=== PATIENT | female | born 1950 | race Caucasian/White ===

== ENCOUNTER 2018-07-27 07:25 | Observation (INO) | payer OTHER, MEDICARE, SELFPAY ==
[2018-07-09 14:51] VITALS: BP 148/88; PULSE 88; RESP 16; TEMP 36.4; O2SAT 97; BMI 32.6
--- NOTE | 2018-07-09 15:00 | SDCEKG_ITS ---
Test Reason : Blood Pressure : / mmHG Vent. Rate : 074 BPM Atrial Rate : 074 BPM P-R Int : 166 ms QRS Dur : 096 ms QT Int : 388 ms P-R-T Axes : 055 004 024 degrees QTc Int : 430 ms Normal sinus rhythm Incomplete right bundle branch block Inferior infarct , age undetermined Abnormal ECG Confirmed by NELLA MANLEY, WALLY ([id number]), story editor JANNETH CAMPA ([id number]) on 07/13/2018 3:47:23 PM Referred By: Vineet Castillo Confirmed By:WALLY CARMEN MD
[2018-07-09 16:57] LABS: Absolute Lymphocyte Count 1.86 X10^3/ul (0.83-4.51); Absolute Neutrophil Count 3.8 X10^3/uL (2.0-7.7); Basophil# 0.02 X10^3/uL; Basophil% 0.3 % (0-1); Eosinophil# 0.08 X10^3/uL; Eosinophils% 1.3 % (0-5); Hematocrit 42.2 % (37-47); Hemoglobin 14.2 g/dl (12.0-15.0); Lymphocyte # 1.86 X10^3/ul (4.0); Lymphocyte % 30.4 % (19-41); Mean Corp Hgb Conc 33.6 g/gl (32-36); Mean Corpuscular Hgb 29.5 pg (27.0-32.0); Mean Corpuscular Volume 87.6 fL (81-99); Mean Platelet Vol. 8.9 fl (6.2-12.0); Monocyte# 0.37 X10^3/uL; Neutrophil # 3.78 X10^3/uL (2.7-7.7); Neutrophil % 61.8 % (47-70); Platelet Count 255 K/mm3 (150-450); RBC Distribution Width CV 12.6 % (11.6-14.6); RBC Distribution Width SD 40.5 fl (35.1-43.9); Red Blood Count 4.82 M/mm3 (4.2-5.4); White Blood Count 6.1 K/mm3 (4.4-11.0)
[2018-07-09 17:00] LABS: POSITIVE COUNT NO; POSITIVE DIFFERENTIAL NO; POSITIVE MORPHOLOGY NO
[2018-07-09 17:20] LABS: Anion Gap 6 (5-15); BUN 21 mg/dL (7-18); Calcium,Total 9.1 mg/dL (8.5-10.1); Chloride 105 mmol/L (98-107); Creatinine, Serum 0.91 mg/dL (0.55-1.02); EST Glomerular Filtration Rate 65 mL/min (>60); Est Glom Filt Rate - Afr Amer 78 mL/min (>60); Estimated Creatinine Clearance 58.86 ml/min; Glucose 95 mg/dL (74-106); Sodium Level 141 mmol/L (136-145)
[2018-07-27] VITALS (9 sets, daily range): BP systolic 113–143; BP diastolic 59–95; PULSE 65–91; RESP 14–18; TEMP 36.6–36.8; O2SAT 96–100; BMI 32.6; BMI 32.3
[2018-07-27] MEDS: Celecoxib 200 MG Capsule 400 MG PO (05:52)
[2018-07-27] MEDS: Acetaminophen 500 MG Tablet 1000 MG PO ×3 (05:52→21:26)
[2018-07-27] MEDS: oxyCODONE HCl Cr 10 MG Tablet PO (05:53)
[2018-07-27] MEDS: Lactated Ringers 1,000 ML 999 ML IV (06:25)
--- NOTE | 2018-07-27 07:15 | KNEE_PTH ---
PATIENT: CONI ROMAN LOC: MS3 U#:[id number] AGE/SX: 67/F ROOM: MS309 RE07/27/[address]: Dr. Vineet Castillo DO : 1950 BED: 1 DIS: 07/28/2018 SPEC #: [id number] RECD: 07/27/18 09:40 STATUS: LOKI REVira #: [id number] AGATHA: 07/27/18 07:[address]: Vineet Castillo DEPT: SURGICAL PATHOLOGY RECD BY: Dean Valderrama ENTERED: 07/27/18 11:32 SP TYPE: TOTAL KNEE OTHR DR: Dr. Dalton Cook DO Tissues: Knee, NOS Procedures: Decalcification bone/plaque Surgery Specimen Level IV HEADER OPERATION: Total knee replacement PRE-OP DIAGNOSIS: Primary osteoarthritis, left knee TISSUE SUBMITTED: Left knee bone and soft tissue MICROSCOPIC DIAGNOSIS Left knee bone and soft tissue, total knee replacement/resection: Pieces of bone with degenerative osteoarthritic changes. Fibroadipose tissue, fibroconnective tissue and reactive synovial tissue. ARELY:idania 07/30/18 MICROSCOPIC DESCRIPTION Slides are reviewed. GROSS DESCRIPTION Received is one container designated bone and soft tissue left knee. The specimen consists of multiple fragments of prajapati-yellow bone measuring in aggregate 10.5 x 10 x 3 cm. Also in the specimen container are multiple fragments of yellow-white soft tissue measuring in aggregate 9 x 10 x 3 cm. A number of bony fragments contain articular surfaces consistent with tibial plateau and femoral condyle and displaying prominent osteophyte formation, eburnation, and bone erosion. Clinical Safety Manager sections are submitted in two cassettes as follows: 1 - soft tissue, 2 - bone after decalcification. / ARELY:idania 07/27/18 TC:5 [facility]: [id number], [id number]
[2018-07-27] MEDS: Scopolamine 1mg/72hr Patch 1 PATCH TD (07:30)
--- NOTE | 2018-07-27 08:32 | PCM.OPRPT ---
Report of Operation Date of Procedure: 07/27/18 Pre-Operative Diagnosis: OA left knee Post-Operative Diagnosis: same Surgery/Procedure Performed:: Left TKR project scheduler: Kalyan Haas Type of Anesthesia:: Spinal Anesthesiologist: Tyron Leigh Specimen's removed: bone Estimated Blood Loss (mL): 25 cc Description of Procedure: Primary Surgeon/Physician: Vineet Castillo project scheduler: Kalyan Haas PA-C project scheduler: Pre-Operative Diagnosis: OA Left knee Post-Operative Diagnosis: same Surgery/Procedure Performed: Left TKR Estimated Blood Loss: 25cc Specimen's Removed: bone Type of Anesthesia: spinal ASA Class: 2 Implants: [[place] Triathlon size 6 PS femur, size 6 tibia, 9 mm polyethylene spacer, 32 mm patella (all components cemented) ] Indications: Patient has severe end-stage osteoarthritis diagnosed via x-rays in the knee. They have failed all forms of conservative measures including activity modification, injections, anti-inflammatories, use of assistive device. The patient has pain that affects on a daily basis and prevents him from doing things that they enjoyed. They have elected to undergo the above procedure. The risks of the procedure were discussed at length and their questions were answered. Procedure Description: The patient was greeted in the preoperative area. The [left ] knee was then marked with a surgical marker. Patient was then taken to or Suite 2. They were administered a dose of antibiotics as well as tranexamic acid. Once adequate anesthesia was obtained and airway was secured to placed in supine position on the operating room table. A well-padded tourniquet was placed on the affected extremity. Leg was then prepped and draped in the usual sterile fashion from the knee down. Ioban was used on the skin. Surgical timeout was then performed and confirmed with all present. Six-inch Esmarch was used to examine the limb and tourniquet was then inflated to 250 mmHg. A longitudinal incision was then planned and carried out in the anterior aspect of the knee. The dissection was then carried the length of the incision the extensor mechanism was identified. Standard medial parapatellar arthrotomy was then performed revealing severe eburnation of bone and periarticular osteophytes. There is complete loss of cartilage especially in the medial compartment with varus alignment. Anterior fat pad was removed for visualization purposes and the anterior medial aspect of the tibia was skeletonized for exposure to the knee. The knee was then flexed the patella was inverted. Opening reamer was then used in the femur approximately 1 cm anterior to the attachment of the PCL. The intramedullary valgus wand was then placed in the femur set at 5? of valgus. The distal femoral cutting jig was then applied to the femur with anticipated resection of approximately 8 mm. This was then made with a oscillating saw. The sizing guide was then placed referencing off the posterior condyles and also reference off the epicondylar axis. This was measured and the appropriate size 4-in-1 cutting jig was then applied to the distal femur. Anterior posterior cuts were made followed by the anterior and posterior chamfer cuts. These bony pieces and fragments were removed and placed on the back table. Posterior retractor was then utilized and the tibia was subluxed anteriorly. Intramedullary tibial alignment jig was then applied to the tibia referencing off the medial one third of the tibial tubercle the anterior tibial spine the middle aspect of the tibiotalar joint. Also reference off patient's [place] slope. The tibial cutting jig was then pinned with anticipated resection of 2 mm off of the deficient medial tibial condyle. This cut was made with the oscillating saw. Once this was complete a laminar rn new graduate was utilized in both medial lateral meniscus were removed and a posterior capsular osteophytes were also removed. Posterior capsule release was performed in the posterior capsule as well as the geniculate arteries are treated with the aqua Patsy. The tibia was incised and the appropriate sized tibial tray was then pinned. The femoral box cutting jig was then applied to the femur and the box was prepared removing a portion of the intercondylar notch. The femoral trial was then placed and the knee was trialed. Full flexion-extension were easily achieved. The knee seemed to balance quite nicely. Any remaining osteophytes were removed at this time. Once this was complete the patella was everted and the Elio patella reaming device was then utilized the patella was then placed in the appropriate jig and reamer was then used to remove approximately 9 mm of the undersurface of the patella. A soft tissue remaining was in the way was removed and patella trial was then placed listed maintain excellent tracking using the no thumbs technique. The tibial tray at this point was punched to accommodate the fins of the final implant. At this point cement was mixed on the back table. The trial components were removed and the knee was copiously irrigated. Did use a cocktail of injection for postoperative pain control. The final components were then cemented in the standard fashion and excess cement was removed with cement removal tools and patellar clamp is placed in the patella. As the cement had cured in full extension tourniquet was deflated and hemostasis was perfect with Bovie cautery as well as the aqua Manus. Needle is once again trialed with different size polyethylenes to ensure the full range of motion was achieved as well as excellent balancing ligamentously was achieved. At this point the knee was copiously irrigated. Final implant was then inserted locking mechanism was engaged and confirmed to be locked. The arthrotomy was then closed with #1 Vicryl aggravate type fashion interrupted. Subcutaneous tissue was closed with 0 Vicryl and surgical orly were placed in the skin. A occlusive silver impregnated dressing was then applied followed by well-padded sterile dressing secured with an Isai wrap. The patient was taken to the PACU in stable condition. No complications known at this time. Postoperatively we will maintain standard total knee postoperative protocol. The use of the physician quality assistant was integral during this procedure. They assisted with positioning placement of the tourniquet retracting closure and placement of the dressing. The procedure would have been much more difficult without their expertise and assistance - Complications none - Admit VTE Documentation VTE Present on Admission: No VTE Mechan Device Prophylaxis: SCD's, Thigh High GEOVANNA Hose VTE Pharm Prophylaxis ordered?: Yes
--- NOTE | 2018-07-27 08:36 | OP.PCM_ITS ---
Report of Operation Date of Procedure: 07/27/18 Pre-Operative Diagnosis: OA left knee Post-Operative Diagnosis: same Surgery/Procedure Performed:: Left TKR corrosion control engineer: Kalyan Haas Type of Anesthesia:: Spinal Anesthesiologist: Tyron Leigh Specimen's removed: bone Estimated Blood Loss (mL): 25 cc Description of Procedure: Primary Surgeon/Physician: Vineet Castillo corrosion control engineer: Kalyan Haas PA-C corrosion control engineer: Pre-Operative Diagnosis: OA Left knee Post-Operative Diagnosis: same Surgery/Procedure Performed: Left TKR Estimated Blood Loss: 25cc Specimen's Removed: bone Type of Anesthesia: spinal ASA Class: 2 Implants: [[place] Triathlon size 6 PS femur, size 6 tibia, 9 mm polyethylene spacer, 32 mm patella (all components cemented) ] Indications: Patient has severe end-stage osteoarthritis diagnosed via x-rays in the knee. They have failed all forms of conservative measures including activity modification, injections, anti-inflammatories, use of assistive device. The patient has pain that affects on a daily basis and prevents him from doing things that they enjoyed. They have elected to undergo the above procedure. The risks of the procedure were discussed at length and their questions were answered. Procedure Description: The patient was greeted in the preoperative area. The [left ] knee was then marked with a surgical marker. Patient was then taken to or Suite 2. They were administered a dose of antibiotics as well as tranexamic acid. Once adequate anesthesia was obtained and airway was secured to placed in supine position on the operating room table. A well-padded tourniquet was placed on the affected extremity. Leg was then prepped and draped in the usual sterile fashion from the knee down. Ioban was used on the skin. Surgical timeout was then performed and confirmed with all present. Six-inch Esmarch was used to examine the limb and tourniquet was then inflated to 250 mmHg. A longitudinal incision was then planned and carried out in the anterior aspect of the knee. The dissection was then carried the length of the incision the extensor mechanism was identified. Standard medial parapatellar arthrotomy was then performed revealing severe eburnation of bone and periarticular osteophytes. There is complete loss of cartilage especially in the medial compartment with varus alignment. Anterior fat pad was removed for visualizati on purposes and the anterior medial aspect of the tibia was skeletonized for exposure to the knee. The knee was then flexed the patella was inverted. Opening reamer was then used in the femur approximately 1 cm anterior to the attachment of the PCL. The intramedullary valgus wand was then placed in the femur set at 5? of valgus. The distal femoral cutting jig was then applied to the femur with anticipated resection of approximately 8 mm. This was then made with a oscillating saw. The sizing guide was then placed referencing off the posterior condyles and also reference off the epicondylar axis. This was measured and the appropriate size 4-in-1 cutting jig was then applied to the distal femur. Anterior posterior cuts were made followed by the anterior and posterior chamfer cuts. These bony pieces and fragments were removed and placed on the back table. Posterior retractor was then utilized and the tibia was subluxed anteriorly. Intramedullary tibial alignment jig was then applied to the tibia referencing off the medial one third of the tibial tubercle the anterior tibial spine the middle aspect of the tibiotalar joint. Also reference off patient's [place] slope. The tibial cutting jig was then pinned with anticipated resection of 2 mm off of the deficient medial tibial condyle. This cut was made with the oscillating saw. Once this was complete a laminar partner manager was utilized in both medial lateral meniscus were removed and a posterior capsular osteophytes were also removed. Posterior capsule release was performed in the posterior capsule as well as the geniculate arteries are treated with the aqua Patsy. The tibia was incised and the appropriate sized tibial tray was then pinned. The femoral box cutting jig was then applied to the femur and the box was prepared removing a portion of the intercondylar notch. The femoral trial was then placed and the knee was trialed. Full flexion-extension were easily achieved. The knee seemed to balance quite nice ly. Any remaining osteophytes were removed at this time. Once this was complete the patella was everted and the Elio patella reaming device was then utilized the patella was then placed in the appropriate jig and reamer was then used to remove approximately 9 mm of the undersurface of the patella. A soft tissue remaining was in the way was removed and patella trial was then placed listed maintain excellent tracking using the no thumbs technique. The tibial tray at this point was punched to accommodate the fins of the final implant. At this point cement was mixed on the back table. The trial components were removed and the knee was copiously irrigated. Did use a cocktail of injection for postoperative pain control. The final components were then cemented in the standard fashion and excess cement was removed with cement removal tools and patellar clamp is placed in the patella. As the cement had cured in full extension tourniquet was deflated and hemostasis was perfect with Bovie cautery as well as the aqua Manus. Needle is once again trialed with different size polyethylenes to ensure the full range of motion was achieved as well as excellent balancing ligamentously was achieved. At this point the knee was copiously irrigated. Final implant was then inserted locking mechanism was engaged and confirmed to be locked. The arthrotomy was then closed with #1 Vicryl aggravate type fashion interrupted. Subcutaneous tissue was closed with 0 Vicryl and surgical orly were placed in the skin. A occlusive silver impregnated dressing was then applied followed by well-padded sterile dressing secured with an Isai wrap. The patient was taken to the PACU in stable condition. No complications known at this time. Postoperatively we will maintain standard total knee p ostoperative protocol. The use of the physician radiology physician assistant was integral during this procedure. They assisted with positioning placement of the tourniquet retracting closure and placement of the dressing. The procedure would have been much more difficult without their expertise and assistance - Complications none - Admit VTE Documentation VTE Present on Admission: No VTE Mechan Device Prophylaxis: SCD's, Thigh High GEOVANNA Hose VTE Pharm Prophylaxis ordered?: Yes
[2018-07-27 09:53] LABS: Hematocrit 38.3 % (37-47); Mean Corp Hgb Conc 33.9 g/gl (32-36); Mean Corpuscular Hgb 29.5 pg (27.0-32.0); Mean Platelet Vol. 8.4 fl (6.2-12.0); Platelet Count 239 K/mm3 (150-450); RBC Distribution Width CV 12.3 % (11.6-14.6); RBC Distribution Width SD 39.2 fl (35.1-43.9); Scan Indicated on CBC? Y/N NO; White Blood Count 7.1 K/mm3 (4.4-11.0)
[2018-07-27 10:03] LABS: Anion Gap 9 (5-15); BUN 18 mg/dL (7-18); BUN/Creat Ratio 20.7 RATIO (10-20); Calcium,Total 8.6 mg/dL (8.5-10.1); Chloride 110 mmol/L (98-107); Creatinine, Serum 0.87 mg/dL (0.55-1.02); EST Glomerular Filtration Rate 69 mL/min (>60); Est Glom Filt Rate - Afr Amer 83 mL/min (>60); Estimated Creatinine Clearance 61.56 ml/min; Glucose 131 mg/dL (74-106); Potassium 3.5 mmol/L (3.5-5.1); Sodium Level 143 mmol/L (136-145)
[2018-07-27] MEDS: Furosemide 40 MG Tablet PO (11:13)
[2018-07-27] MEDS: Senna/Docusate Sodium 1 Tablet 2 TABLET PO ×2 (11:13→21:27)
[2018-07-27] MEDS: Multivitamins,Ther W-Minerals Tablet 1 TABLET PO (11:14)
[2018-07-27] MEDS: Lactated Ringers 1,000 ML 125 ML IV (14:35)
[2018-07-27] MEDS: Aspirin 325 MG Tablet PO (17:27)
[2018-07-27] MEDS: oxyCODONE 5 MG Tablet PO (18:44)
[2018-07-27] MEDS: traMADol 50 MG Tablet PO (21:28)
[2018-07-28] MEDS: oxyCODONE 5 MG Tablet PO ×3 (03:45→13:36)
[2018-07-28 03:51] VITALS: BP 129/68; PULSE 94; RESP 18; TEMP 36.6; O2SAT 96
[2018-07-28 05:52] LABS: Hematocrit 33.2 % (37-47); Hemoglobin 11.1 g/dl (12.0-15.0); Mean Corp Hgb Conc 33.4 g/gl (32-36); Mean Corpuscular Hgb 29.4 pg (27.0-32.0); Mean Corpuscular Volume 87.8 fL (81-99); Mean Platelet Vol. 8.9 fl (6.2-12.0); Platelet Count 206 K/mm3 (150-450); RBC Distribution Width CV 12.2 % (11.6-14.6); RBC Distribution Width SD 37.8 fl (35.1-43.9); Red Blood Count 3.78 M/mm3 (4.2-5.4)
[2018-07-28 05:57] LABS: Anion Gap 6 (5-15); BUN 19 mg/dL (7-18); BUN/Creat Ratio 22.6 RATIO (10-20); Calcium,Total 8.1 mg/dL (8.5-10.1); Chloride 109 mmol/L (98-107); Creatinine, Serum 0.84 mg/dL (0.55-1.02); EST Glomerular Filtration Rate 71 mL/min (>60); Est Glom Filt Rate - Afr Amer 86 mL/min (>60); Estimated Creatinine Clearance 63.76 ml/min; Glucose 111 mg/dL (74-106); Potassium 3.9 mmol/L (3.5-5.1); Sodium Level 141 mmol/L (136-145)
[2018-07-28 06:03] LABS: Scan Indicated on CBC? Y/N NO
[2018-07-28] MEDS: Acetaminophen 500 MG Tablet 1000 MG PO ×2 (06:17→13:34)
--- NOTE | 2018-07-28 07:35 | PCM.PN.ORT ---
Subjective: Patient sitting at bedside eating breakfast. Patient states pain is well managed. Denies chest pain, shortness breath, calf pain, nausea vomiting. Patient states she is ready for discharge home, and will continue with outpatient physical therapy at [facility] Objective: Dressing is clean dry intact. Negative signs and symptoms of DVT. Vital signs labs within normal limits. Patient is afebrile neurovascular is otherwise intact. - Physical Exam General: Alert, Oriented x3, Cooperative HEENT: PERRLA Oral: Moist Mucosa Neurological: Cranial nerves II-XII grossly intact Psych/Mental Status: Normal Affect, Alert and oriented to time, place, person, mood and affect Vital Signs Temp Pulse Resp BP Pulse Ox 97.9 F 94 18 129/68 H 96 07/28/18 03:51 07/28/18 03:51 07/28/18 03:51 07/28/18 03:51 07/28/18 03:51 Oxygen Delivery Method Room Air Weight: 96.3 kg Body Mass Index (BMI) 32.3 Intake and Output for Last 24 Hours 07/26/18 07/27/18 07/28/18 23:59 23:59 23:59 Intake Total 2734 / 2734 120 / 120 Output Total 200 / 200 100 / 100 Balance 2534 / 2534 Laboratory Tests Past 24 Hrs 07/27/18 07/27/18 07/28/18 09:40 09:40 05:22 WBC 7.1 7.0 RBC 4.40 3.78 L Hgb 13.0 11.1 L Hct 38.3 33.2 L MCV 87.0 87.8 MCH 29.5 29.4 MCHC 33.9 33.4 RDW 12.3 12.2 RDW Differential 39.2 37.8 Plt Count 239 206 MPV 8.4 8.9 Sodium 143 Potassium 3.5 Chloride 110 H Carbon Dioxide 24.0 Anion Gap 9 BUN 18 Creatinine 0.87 Estim Creat Clear Calc 61.56 Est GFR (MDRD) Af Amer 83 Est GFR (MDRD) Non-Af 69 BUN/Creatinine Ratio 20.7 H Glucose 131 H Calcium 8.6 07/28/18 05:22 WBC RBC Hgb Hct MCV MCH MCHC RDW RDW Differential Plt Count MPV Sodium 141 Potassium 3.9 Chloride 109 H Carbon Dioxide 26.0 Anion Gap 6 BUN 19 H Creatinine 0.84 Estim Creat Clear Calc 63.76 Est GFR (MDRD) Af Amer 86 Est GFR (MDRD) Non-Af 71 BUN/Creatinine Ratio 22.6 H Glucose 111 H Calcium 8.1 L Medical Necessity - Tobacco Use Smoking Status: Never smoker Tobacco Use: Non-smoker Assessment/Plan Status post left total knee arthroplasty Plan 1. Continue all pain medications as prescribed 2. Continue with physical therapy today 3. Aspirin 325 mg 1 p.o. every 12 hours x30 days for postop DVT prophylaxis 4. Encourage incentive spirometry 5. Discharge home today 6. Continue physical therapy at [facility] 7. Follow-up as scheduled see pink sheet.
--- NOTE | 2018-07-28 07:44 | DCINST_ITS ---
Discharge Diet: No Restrictions Discharge Activity: May Not Drive, May Shower, Use Walker May shower in (days): 2 Ice area for (Minutes): 20 - each hour while awake. Weight Bearing Status: Weight bearing as tolerated Elevate: Operative Extremity Additional Activity Instructions:: Wear elastic stockings for 2 weeks after your surgery. Call your doctor if your incision/area has: Continuous Slow Oozing, Sudden Increased Bleeding, Increased Pain/ Swelling, Increased Redness, Foul Smelling Discharge Call your doctor if you observe: Fever of 101 or Higher, Coldness, Increased Pain - in extremity, Numbness or Tingling, Change in Color, Calf discomfort, Uncontrolled pain Change Dressing in (Days):: 0 - and daily as needed. Remove Dressing in (days):: 8 Cleanse incision/area with: Soap & Water Allergies/Adverse Reactions: Allergies No Known Allergies Allergy (Verified 07/09/18 14:41) Medications to take at Discharge Cholecalciferol (Vitamin D3) [Vitamin D3] 1,000 unit PO DAILY 06/14/16 Furosemide [Lasix] 40 mg PO DAILY 06/14/16 Lisinopril [Zestril] 40 mg PO DAILY 06/14/16 Meloxicam [Mobic] 15 mg PO DAILY 06/14/16 Multivit,Calc,Mins/Iron/Folic [Women's Daily Formula Caplet] 1 each PO DAILY 06/14/16 Multivit-Min/Folic Acid/Biotin [Hair, Skin and Nails Caplet] 1 each PO DAILY 07/09/18 Red Yeast Rice 600 mg PO BID 07/09/18 Acetaminophen [Tylenol] 1,000 mg PO Q8 #90 tab 07/28/18 Aspirin 325 mg PO BIDCM #60 tab 07/28/18 Oxycodone [Oxyir] 5 - 10 mg PO Q4H PRN PRN 7 Days #90 tab 07/28/18 The following prescriptions were given: Oxycodone [Oxyir] 5 - 10 mg PO Q4H PRN PRN 7 Days #90 tab PRN Reason: Mod-Severe Pain (4-1010) Acetaminophen [Tylenol] 1,000 mg PO Q8 #90 tab Aspirin 325 mg PO BIDCM #60 tab Primary Care Physician: Dalton Cook [Primary Care Provider] - Test Results: Test results from this visit will be discussed in further detail at your follow- up appointment, if applicable. Please Follow Up With: Kalyan Haas PA-C When: seen pink sheet
[2018-07-28] MEDS: Multivitamins,Ther W-Minerals Tablet 1 TABLET PO (08:29)
[2018-07-28] MEDS: Aspirin 325 MG Tablet PO (08:29)
[2018-07-28 09:00] VITALS: BP 132/67; PULSE 82; RESP 16; TEMP 36.9; O2SAT 97
[2018-07-28] MEDS: Senna/Docusate Sodium 1 Tablet 2 TABLET PO (09:10)
[2018-07-28] MEDS: Furosemide 40 MG Tablet PO (09:10)
--- NOTE | 2018-07-28 09:10 | CASEMGMT ---
RN CM Face to Face with patient for initial transition planning/care coordination assessment. RN CM introduced self and role at [facility]. Patient lying in bed, alert and oriented. Patient willing to participate in assessment and is able to answer all questions appropriately. Care providers, pharmacy, and demographics verified. Patient wishes to discharge home and is setup with [facility] for outpatient therapy with friend providing transportation. Patient states she has no further needs or concerns at this time. CM to follow for discharge planning needs that may arise. PCP: Joyce Specialists: zheng Castillo; Preferred Pharmacy: [facility] Insurance: MMO, MCRA Prescription Benefit: yes Living Will/HPOA: yes, brother [place] HPOA LNOK: Brother Living Arrangements: Patient lives alone in a Condo, no steps to enter home. Patient was independent prior to surgery Transportation: friend/family DME/HHC: Patient states she has shower chair, raised toilet seat, grab bars and walker at home. Denies previous HHC of SNF Disposition Plan: Patient to discharge home with outpatient therapy, family support, and follow-up plans in place. Marina MORGANN, RN, CM
[2018-07-28] MEDS: Lisinopril 40 MG Tablet PO (09:11)
== END 2018-07-28 14:25 | disposition home or self-care (01) ==
LOC: MS3 08:02
PROVIDERS: Admitting Provider Orthopaedic Surgery; Family Provider Family Medicine; PCP Family Medicine; Referring Provider Orthopaedic Surgery; Visit Provider Orthopaedic Surgery
PROC: (CPT 27447; principal; 2018-07-27 06:50)
DX: M17.12 Unilateral primary osteoarthritis, left knee (principal); I10 Essential (primary) hypertension; G25.81 Restless legs syndrome; E78.00 Pure hypercholesterolemia, unspecified; Z79.899 Other long term (current) drug therapy; Z79.82 Long term (current) use of aspirin
CPT/HCPCS: 27447; 64447; 36415; 80048; 85025; 85027; 87077; 87081; 88305; 88311; 93005; 96360; 96361; 97110; 97161; 97166; 97530; 97535; 99218; C1776; J7040; J7120; G0378; G0379

== ENCOUNTER → 2018-08-03 14:50 | Outpatient (CLI) | payer OTHER, MEDICARE, SELFPAY ==
[2018-07-27 10:29] VITALS: BMI 32.3
--- NOTE | 2018-08-03 14:56 | VDLE_ITS ---
Reason For Study: LLE pain RIGHT LEFT CFV is compressible, spontaneous, phasic, GSV is normal. competent and demonstrates normal CFV is compressible, spontaneous, phasic, augmentation. competent, and demonstrates normal Procedure augmentation. Exam performed in department. FV is compressible, spontaneous, phasic, The exam was diagnostic. competent and demonstrates normal A preliminary report was called and/or faxed augmentation. to Dr. Castillo @ 3:25 pm @ [phone]. POP V is compressible, spontaneous, phasic, competent and demonstrates normal augmentation. T/P Trunk is compressible. PTV is compressible. LT PerV is compressible. Interpretation Summary Deep veins of the left lower extremity are patent and compressible segmentally. There is no evidence of left lower extremity deep vein thrombosis. Valvular competence appears intact within the proximal deep venous system on the left . The left greater saphenous vein appears patent and compressible segmentally. Ordering Physician: Vineet Castillo Referring Physician: Dalton Cook Performed By: Bronwyn Smith, ELIDA, RVT
== END ==
PROVIDERS: Family Provider Family Medicine; PCP Family Medicine; Referring Provider Orthopaedic Surgery; Visit Provider Orthopaedic Surgery
DX: M79.605 Pain in left leg (principal)
CPT/HCPCS: 93971